=== PATIENT | male | born 1955 | race Caucasian/White ===

== ENCOUNTER 2023-05-06 08:13 | Outpatient (CLI) | payer MEDICARE, MEDICAID | END 2023-05-06 08:14 | disposition home or self-care (01) | LOC: CSHWCC 08:13 | PROVIDERS: ATTEND Nurse Practitioner Family | DX: S81.802D Unspecified open wound, left lower leg, subsequent encounter (principal); L97.529 Non-pressure chronic ulcer of other part of left foot with unspecified severity; R60.0 Localized edema | CPT/HCPCS: 87070; 87077; 87186; 87205; 97139; 97597; G0463; 99204 ==

== ENCOUNTER 2023-06-06 09:19 | Outpatient (CLI) | payer MEDICARE, MEDICAID | END 2023-06-06 09:20 | disposition home or self-care (01) | LOC: CSHWCC 09:19 | PROVIDERS: ATTEND Nurse Practitioner Family | DX: S81.802D Unspecified open wound, left lower leg, subsequent encounter (principal); R60.0 Localized edema | CPT/HCPCS: 11043; 11046; 29581 ==